=== PATIENT | female | born 1995 | race Caucasian/White ===

== ENCOUNTER 2017-04-01 14:18 | Emergency (ER) | payer OTHER ==
[2017-04-01 14:31] VITALS: BP 146/65; PULSE 88; O2SAT 97
--- NOTE | 2017-04-01 14:48 | ERPHSYRPT ---
- History of Present Illness Time Seen by Provider: 04/01/17 14:20 Source: patient Exam Limitations: no limitations Patient Subjective Stated Complaint: pt here for opening of wound to right forearm, she states on tuesday she cut arm on brokien noble jar and it was dermabonded shut and today glue fell off, Triage Nursing Assessment: pt has 1/2 cm laceration to right arm, no drainage or reddness noted, wound is gaping open Physician History: 21 y/o female comes to the ER after being seen at an outside hospital for a laceration of the right forearm by a glass jar. Pt had dermabond applied but the patient says the glue came off and exposed the wound. Pt admits to having drainage, redness and pain. No fever or chills. Pt is up to date with her immunizations. Timing/Duration: day(s) Quality: painful Severity: mild Location: extremities Possible Causes: other (glass) Allergies/Adverse Reactions: hydrocodone bitartrate [From [place]] Allergy (Verified 04/01/17 14:32) sulfamethoxazole [From Bactrim] Allergy (Verified 04/01/17 14:32) trimethoprim [From Bactrim] Allergy (Verified 04/01/17 14:32) Home Medications: Albuterol Sulfate [Proair Hfa] 8.5 gm IH BID 06/13/15 [History] Hx Tetanus, Diphtheria Vaccination/Date Given: Yes (3 yrs) Hx Influenza Vaccination/Date Given: No Hx Pneumococcal Vaccination/Date Given: No Immunizations Up to Date: Yes - Review of Systems Constitutional: No Fever, No Chills Eyes: No Symptoms Ears, Nose, & Throat: No Symptoms Respiratory: No Cough, No Dyspnea Cardiac: No Chest Pain, No Edema, No Syncope Abdominal/Gastrointestinal: No Abdominal Pain, No Nausea, No Vomiting, No Diarrhea Genitourinary Symptoms: No Dysuria Musculoskeletal: No Back Pain, No Neck Pain Skin: Other (laceration), No Rash Neurological: No Dizziness, No Focal Weakness, No Sensory Changes Psychological: No Symptoms Endocrine: No Symptoms All Other Systems: Reviewed and Negative - Past Medical History Pertinent Past Medical History: Yes Neurological History: No Pertinent History ENT History: No Pertinent History Cardiac History: No Pertinent History Respiratory History: Asthma Endocrine Medical History: No Pertinent History Musculoskeletal History: No Pertinent History GI Medical History: No Pertinent History History: No Pertinent History Psycho-Social History: Depression Female Reproductive Disorders: No Pertinent History Other Medical History: CHRONIC UTI - Past Surgical History Past Surgical History: No Neuro Surgical History: No Pertinent History Cardiac: No Pertinent History Gastrointestinal: No Pertinent History Genitourinary: No Pertinent History Musculoskeletal: No Pertinent History Female Surgical History: No Pertinent History - Social History Smoking Status: Never smoker How long have you smoked: 1 year Exposure to second hand smoke: No Drug Use: none Patient Lives Alone: No - Female History Hx Last Menstrual Period: january Hx Now: No - Nursing Vital Signs Nursing Vital Signs: Initial Vital Signs Pulse Rate 88 04/01/17 14:26 Respiratory Rate 16 04/01/17 14:26 Blood Pressure 146/65 04/01/17 14:26 O2 Sat by Pulse Oximetry 97 04/01/17 14:26 Pain Scale Pain Intensity 0 - Physical Exam General Appearance: no apparent distress, alert Eye Exam: PERRL/EOMI, eyes nml inspection Ears, Nose, Throat Exam: normal ENT inspection, pharynx normal, moist mucous membranes Neck Exam: normal inspection, non-tender, supple, full range of motion Respiratory Exam: normal breath sounds, lungs clear, No respiratory distress Cardiovascular Exam: regular rate/rhythm, normal heart sounds Gastrointestinal/Abdomen Exam: soft, mass, No tenderness Back Exam: normal inspection, normal range of motion, No CVA tenderness, No vertebral tenderness Extremity Exam: normal inspection, normal range of motion Neurologic Exam: alert, oriented x 3, cooperative, normal mood/affect, sensation nml, No motor deficits Skin Exam: normal color, warm, dry, laceration (1 cm laceration) SpO2: 97 Oxygen Delivery: Room Air Procedures - Laceration/Wound Repair Right Upper Anterior Lateral Proximal Volar Arm Wound Location: Right Wound Length (cm): 1 Wound's Depth, Shape: superficial Wound Explored: clean Irrigated: Yes Hibiclens Prep: Yes Anesthesia: 1% Lidocaine Volume Anesthetic (ccs): 5 Wound Debrided: minimal Wound Repaired With: sutures Suture Size/Type: 5-0, ethilon Number of Sutures: 4 Layer Closure?: Yes Sterile Dressing Applied?: Yes - Course Nursing assessment & vital signs reviewed: Yes Ordered Tests: Medication Summary Discontinued Medications Generic Name Dose Route Start Last Admin Trade Name Freq PRN Reason Stop Dose Admin Cephalexin HCl 500 mg 04/01/17 14:49 04/01/17 14:55 Keflex 500 Mg PO 04/01/17 14:50 500 mg STAT ONE Administration Cephalexin HCl Confirm 04/01/17 14:52 Keflex 500 Mg Administered 04/01/17 14:53 Dose 500 mg .ROUTE .STK-MED ONE Lidocaine HCl 5 ml 04/01/17 14:49 04/01/17 14:55 Xylocaine 1% Hcl 20 Ml Mdv IJ 04/01/17 14:50 5 ml STAT ONE Administration Lidocaine HCl Confirm 04/01/17 14:53 Xylocaine 1% Hcl 20 Ml Mdv Administered 04/01/17 14:54 Dose 5 ml .ROUTE .STK-MED ONE - Progress Progress: improved Progress Note: 04/01/17 15:06 See Procedure Note Patient will be placed on keflex for 7 days. - Departure Time of Disposition: 15:06 Departure Disposition: Home Clinical Impression: Laceration Condition: Stable Critical Care Time: No Referrals: DOCTOR,NO FAMILY [Primary Care Provider] - Instructions: Laceration Repair Additional Instructions: Follow up with your primary care doctor in 7 days to have the sutures removed. Prescriptions: Cephalexin Mh 500 mg [Keflex 500 mg] 500 mg PO BID #13 capsule
[2017-04-01] MEDS ORDERED: KEFLEX 500 MG PO ONE (14:49)
[2017-04-01] MEDS ORDERED: XYLOCAINE 1% HCL 20 ML MDV IJ ONE (14:49)
[2017-04-01] MEDS ORDERED: KEFLEX 500 MG ONE (14:52)
[2017-04-01] MEDS ORDERED: XYLOCAINE 1% HCL 20 ML MDV ONE (14:53)
== END 2017-04-01 15:15 | disposition home or self-care (01) ==
LOC: ED 14:18
PROC: 0HQDXZZ Repair Right Lower Arm Skin, External Approach (ICD-10-PCS; principal; 2017-04-01)
DX: S51.811A Laceration without foreign body of right forearm, initial encounter (principal); W25.XXXD Contact with sharp glass, subsequent encounter
CPT/HCPCS: 12001; 99283; A9270-GY

== ENCOUNTER 2019-07-11 13:29 | Emergency (ER) | payer OTHER ==
[2019-07-11] MEDS ORDERED: MOTRIN 600 MG PO ONE (14:04)
[2019-07-11] MEDS ORDERED: MOTRIN 600 MG ONE (14:10)
--- NOTE | 2019-07-11 14:12 | ERPHSYRPT ---
- History of Present Illness Time Seen by Provider: 07/11/19 14:00 Source: patient Exam Limitations: no limitations Patient Subjective Stated Complaint: pt here for cough, runny nose, fever for 3 days now, took tylenol at 0930 today Triage Nursing Assessment: pt alert, resp easy, has dry cough, stuffy nose, moves all ext well, Physician History: Patient has had intermittent fevers, rhinorrhea, nasal congestion, sore throat and occasional cough over the past two days. Patient has had multiple sick contacts at work with URI and bronchitis. Timing/Duration: abrupt onset, days (2) Severity: moderate ENT Location: nose, throat Prearrival Treatment: over the counter meds (patient took Tylenol at 09:30 due to having a fever of 101) Modifying Factors: Improves With: nothing Associated Symptoms: cough, fever, malaise, nasal congestion/drainage, sinus infection, sore throat, No ear pain (R), No ear pain (L), No chills, No change in hearing, No dizziness, No drooling, No ear drainage, No facial pain/swelling , No headache, No hearing loss, No jaw pain, No motion sickness, No epistaxis, No nasal foreign body, No neck pain, No poor fluid intake, No poor solids intake , No ringing of ears, No swollen glands, No tooth pain, No difficulty swallowing , No voice change Allergies/Adverse Reactions: hydrocodone bitartrate [From [place]] Allergy (Verified 07/11/19 13:41) sulfamethoxazole [From Bactrim] Allergy (Verified 07/11/19 13:41) trimethoprim [From Bactrim] Allergy (Verified 07/11/19 13:41) Home Medications: Albuterol Sulfate [Proair Hfa] 8.5 gm IH BID 06/13/15 [History] Hx Tetanus, Diphtheria Vaccination/Date Given: No Hx Influenza Vaccination/Date Given: No Hx Pneumococcal Vaccination/Date Given: No Immunizations Up to Date: Yes - Review of Systems Constitutional: Fever, Fatigue, Malaise, No Chills Eyes: No Eye Pain, No Eye Redness, No Vision Changes Ears, Nose, & Throat: Nose Congestion, Nose Discharge, Throat Pain, No Ear Pain , No Epistaxis, No Mouth Pain, No Throat Swelling, No Hoarse, No Painful Swallowing Respiratory: Cough, No Dyspnea, No Dyspnea on Exertion (ZARAGOZA), No Wheezing Cardiac: No Chest Pain, No Edema, No Syncope Abdominal/Gastrointestinal: No Abdominal Pain, No Nausea, No Vomiting, No Diarrhea, No Hematemesis, No Hematochezia, No Melena Genitourinary Symptoms: No Dysuria, No Hematuria, No Flank Pain Musculoskeletal: Myalgias, No Back Pain, No Neck Pain Skin: No Rash Neurological: No Dizziness, No Focal Weakness, No Headache, No Parasthesia, No Sensory Changes Psychological: No Symptoms Endocrine: No Excessive Sweating Hematologic/Lymphatic: No Easy Bleeding, No Easy Bruising All Other Systems: Reviewed and Negative - Past Medical History Pertinent Past Medical History: Yes Neurological History: No Pertinent History ENT History: No Pertinent History Cardiac History: No Pertinent History Respiratory History: Asthma Endocrine Medical History: No Pertinent History Musculoskeletal History: No Pertinent History GI Medical History: No Pertinent History History: No Pertinent History Psycho-Social History: Depression Female Reproductive Disorders: No Pertinent History Other Medical History: CHRONIC UTI - Past Surgical History Past Surgical History: Yes Neuro Surgical History: No Pertinent History Cardiac: No Pertinent History Gastrointestinal: No Pertinent History Genitourinary: No Pertinent History Musculoskeletal: Orthopedic Surgery Female Surgical History: No Pertinent History Other Surgical History: tight great toe - Social History Smoking Status: Never smoker How long have you smoked: 1 year Exposure to second hand smoke: No Drug Use: none Patient Lives Alone: No - Female History Hx Last Menstrual Period: jun 21 Hx Now: No - Nursing Vital Signs Nursing Vital Signs: Initial Vital Signs Temperature 97.7 F 07/11/19 13:38 Pulse Rate 112 H 07/11/19 13:38 Respiratory Rate 16 07/11/19 13:38 Blood Pressure 122/99 07/11/19 13:38 O2 Sat by Pulse Oximetry 100 07/11/19 13:38 Pain Scale Pain Intensity 0 - Physical Exam General Appearance: no apparent distress, alert Eye Exam: bilateral eye: normal inspection, PERRL, EOMI Nasal Exam: normal inspection, discharge (clear rhinorrhea), No active bleeding , No dried blood, No foreign body, No sinus tenderness Throat Exam: pharynx normal, moist mucus membranes, No dental tenderness, No excessive drooling, No maxillary swelling, No pharynx swelling, No pharynx tenderness, No tongue swollen, No tonsillar exudate, No tonsillar swelling, No trismus, No uvula swelling Neck Exam: normal inspection, non-tender, supple, full range of motion, trachea midline, No JVD, No lymphadenopathy (R), No lymphadenopathy (L), No Brudzinski' s sign Cardiovascular/Respiratory Exam: normal breath sounds, regular rate/rhythm, heart sounds normal, no JVD, no M/R/G, no respiratory distress, normal peripheral pulses Abdominal Exam: non-tender, soft, No no organomegaly, No no hernia, No guarding , No tenderness, No hepatomegaly Neurologic Exam: alert, oriented x 3, grips II-XII nml as tested, normal mood/ affect, sensation nml, No motor deficits Skin Exam: normal color, warm, dry, No rash, No jaundice, No diaphoresis SpO2 Interpretation: normal SpO2: 100 O2 Delivery: Room Air - Course Nursing assessment & vital signs reviewed: Yes Ordered Tests: Medication Summary Discontinued Medications Generic Name Dose Route Start Last Admin Trade Name Freq PRN Reason Stop Dose Admin Ibuprofen 600 mg 07/11/19 14:04 07/11/19 14:10 Motrin 600 Mg PO 07/11/19 14:05 600 mg STAT ONE Administration Ibuprofen Confirm 07/11/19 14:10 Motrin 600 Mg Administered 07/11/19 14:11 Dose 600 mg .ROUTE .[employer]-MED ONE Lab/Rad Data: Laboratory Results 07/11/19 Range/Units 14:25 Influenza Type A Ag NEGATIVE (NEGATIVE) Influenza Type B Ag NEGATIVE (NEGATIVE) RSV (PCR) NEGATIVE (Negative) Group A Strep Antibody NEGATIVE (NEGATIVE) - Progress Progress: improved Progress Note: 07/11/19 15:33 Patient labs are negative and patient had no abnormal physical exam findings there were significant for patient to be admitted at this time as she was hemodynamically in good condition, so patient will be discharged home and treated for symptomatic relief medications sent to her pharmacy and follow up with referral to primary care next week for followup. Counseled pt/family regarding: lab results, diagnosis, need for follow-up - Departure Departure Disposition: Home Clinical Impression: Acute upper respiratory infection, Elevated blood pressure reading without diagnosis of hypertension Acute sinusitis, unspecified Qualifiers: Sinusitis location: pansinusitis Recurrence: non-recurrent Qualified Code(s): J01.40 - Acute pansinusitis, unspecified Acute pharyngitis Qualifiers: Pharyngitis/tonsillitis etiology: unspecified etiology Qualified Code(s): J02.9 - Acute pharyngitis, unspecified Condition: Good Critical Care Time: No Referrals: DOCTOR,NO FAMILY [Primary Care Provider] - ROSA MARQUEZ MD [ACTIVE STAFF] - 07/16/19 Instructions: Sinusitis, Adult (DC), Cough, Runny Nose, and the Common Cold (DC ), Sore Throat, Adult (DC) Additional Instructions: Your strep, influenza and RSV tests were negative on 07/11/2019. Follow-up with the primary care physician referral next week if no better. Return to the emergency department if any worse cough, worse sore throat, change in mental status or any other concerning signs or symptoms that were not present at today' s emergency room visit for immediate reevaluation in the emergency department. Forms: Work/School Release Form Prescriptions: Iprat[place]ium [place] 2 spray NS Q8H PRN PRN #1 spray PRN Reason: Nasal Congestion/Rhinorrhea Prednisone 20 mg [Deltasone 20 mg] 60 mg PO DAILY PRN #9 tablet PRN Reason: Sore Throat Relief Pseudoephedrine HCl [Sudafed 12 Hour] 120 mg PO BID #20 tablet.er
[2019-07-11 15:04] LABS: Group A Strep NEGATIVE (NEGATIVE); INFLUENZA A NEGATIVE (NEGATIVE); INFLUENZA B NEGATIVE (NEGATIVE); RESPIRATORY SYNCTIAL VIRUS NEGATIVE (Negative)
[2019-07-11 15:09] VITALS: PULSE 78
[2019-07-11 15:55] VITALS: BP 99/67; O2SAT 99
== END 2019-07-11 15:56 | disposition home or self-care (01) ==
LOC: ED 13:29
DX: J06.9 Acute upper respiratory infection, unspecified (principal); R03.0 Elevated blood-pressure reading, without diagnosis of hypertension; J01.40 Acute pansinusitis, unspecified; J02.9 Acute pharyngitis, unspecified; R05 Cough; R09.89 Other specified symptoms and signs involving the circulatory and respiratory systems; R50.9 Fever, unspecified
CPT/HCPCS: 87631; 87651; 99283; A9270-GY